=== PATIENT | male | born 1985 | race Caucasian/White ===

== ENCOUNTER 2022-07-30 04:24 | Day surgery (SDC) | payer BC ==
[2022-07-24 17:35] VITALS: BMI 22.7
[~2022-07-30 04:24] MED LIST: BUPIVACAINE HCL/PF 0.5% (5MG/ML) 10 ML VIAL IJ ONE; BUPIVACAINE HCL/PF 0.75% 10 ML VIAL NR ONE; LIDOCAINE HCL 1% PRESERVATIVE FREE - 30ML VIAL IJ ONE
[2022-07-30] MEDS ORDERED: LIDOCAINE HCL/PF 1% SDV 5ML VIAL ONE (07:28)
[2022-07-30] MEDS ORDERED: BUPIVACAINE HCL/PF 0.75% 10 ML VIAL ONE (07:28)
[2022-07-30] MEDS ORDERED: ACETAMINOPHEN 500 MG TABLET (FP) PO PRN (13:10)
[2022-07-30] MEDS ORDERED: DEXAMETHASONE SOD PHOSPHATE 10 MG/1 ML VIAL ONE (13:54)
[2022-07-30] MEDS ORDERED: BUPIVACAINE HCL/PF 0.5% (5MG/ML) 10 ML VIAL IJ ONE (14:05)
[2022-07-30 15:26] VITALS: PULSE 83; RESP 18
[2022-07-30 15:28] VITALS: BP 137/94; TEMP 98.2
== END 2022-07-30 15:00 | disposition home or self-care (01) ==
LOC: JASU-SURG 04:24
PROVIDERS: ATTEND Pain Medicine Pain Medicine
PROC: 3E0T33Z Introduction of Anti-inflammatory into Peripheral Nerves and Plexi, Percutaneous Approach (ICD-10-PCS; 2022-07-30)
PROC: 3E0T3BZ Introduction of Anesthetic Agent into Peripheral Nerves and Plexi, Percutaneous Approach (ICD-10-PCS; principal; 2022-07-30 14:45)
DX: M47.812 Spondylosis without myelopathy or radiculopathy, cervical region (principal)
CPT/HCPCS: 76000-TC-FY; J1100

== ENCOUNTER 2022-08-20 04:21 | Day surgery (SDC) | payer BC ==
[2022-08-19 15:44] VITALS: BMI 22.7
[~2022-08-20 04:21] MED LIST changes: +BUPIVACAINE HCL/PF 0.5% (5 MG/ML) 30 ML VIAL IJ ONE; -BUPIVACAINE HCL/PF 0.5% (5MG/ML) 10 ML VIAL IJ ONE; -BUPIVACAINE HCL/PF 0.75% 10 ML VIAL NR ONE; +IOHEXOL 180 MG/1 ML ML IJ ONE; -LIDOCAINE HCL 1% PRESERVATIVE FREE - 30ML VIAL IJ ONE
[2022-08-20] MEDS ORDERED: BUPIVACAINE HCL/PF 0.5% (5MG/ML) 10 ML VIAL ONE ×2 (07:54→13:51)
[2022-08-20] MEDS ORDERED: LIDOCAINE HCL/PF 1% SDV 5ML VIAL ONE ×2 (07:55→13:51)
[2022-08-20 12:26] VITALS: RESP 18
[2022-08-20] MEDS ORDERED: BUPIVACAINE HCL/PF 0.5% (5 MG/ML) 30 ML VIAL IJ ONE (14:18)
[2022-08-20] MEDS ORDERED: ACETAMINOPHEN 500 MG TABLET (FP) PO PRN (15:26)
[2022-08-20 16:24] VITALS: BP 130/92; PULSE 70; TEMP 98.7
== END 2022-08-20 14:45 | disposition home or self-care (01) ==
LOC: JASU-SURG 04:21
PROVIDERS: ATTEND Pain Medicine Pain Medicine
PROC: 3E0T33Z Introduction of Anti-inflammatory into Peripheral Nerves and Plexi, Percutaneous Approach (ICD-10-PCS; 2022-08-20)
PROC: 3E0T3BZ Introduction of Anesthetic Agent into Peripheral Nerves and Plexi, Percutaneous Approach (ICD-10-PCS; principal; 2022-08-20 14:00)
DX: M47.812 Spondylosis without myelopathy or radiculopathy, cervical region (principal)
CPT/HCPCS: 76000-TC-FY